=== PATIENT | female | born 1945 | race Caucasian/White ===

== ENCOUNTER 2018-12-12 13:32 | Emergency (ER) | payer OTHER ==
[~2018-12-12] VITALS: Ht 160 cm; Wt 94.3 kg
[2018-12-12] MEDS ORDERED: ATENOLOL25 MG (13:44)
[2018-12-12] MEDS ORDERED: PRILOSEC OTC20 MG (13:47)
[2018-12-12] MEDS ORDERED: SYNTHROID50 MCG (13:48)
[2018-12-12] MEDS ORDERED: COZAAR100 MG (13:50)
[2018-12-12] MEDS ORDERED: METFORMIN HCL500 MG (13:50)
[2018-12-12] MEDS ORDERED: ASA-EC81 MG (13:51)
[2018-12-12] MEDS ORDERED: FENOFIBRATE160 MG (13:52)
== END 2018-12-12 17:32 | disposition home or self-care (01) ==
LOC: ER 13:32
DX: I73.89 Other specified peripheral vascular diseases (principal); L03.116 Cellulitis of left lower limb; L03.115 Cellulitis of right lower limb